=== PATIENT | male | born 1990 | race Caucasian/White ===

== ENCOUNTER 2020-11-16 18:30 | Emergency (ER) | payer OTHER ==
[~2020-11-16] VITALS: Ht 180.3 cm; Wt 80.4 kg
[2020-11-16 18:40] VITALS: BP 141/78
--- NOTE | 2020-11-16 19:05 | NUR ---
PT AMBULATED TO ROOM FROM TRIAGE. PT WORKS FOR [employer] [place] AT [employer] AND HAD NEEDLE STICK INJURY FROM PT KNOWN TO HAVE HEP C. PT SENT HERE FROM WORK FOR EVALUATION.
[2020-11-16 19:21] LABS: BASOPHILS % (AUTO) 1 % (0-1); EOSINOPHILS % (AUTO) 3 % (1-7); LYMPHOCYTES % (AUTO) 29 % (22-44); MEAN CORPUSCULAR HGB CONC 35.4 g/dL (33.2-36.2); MEAN PLATELET VOLUME 9.1 fL (7.4-10.4); MONOCYTES % (AUTO) 10 % (2-9); NEUTROPHILS % (AUTO) 57 % (42-75); PLATELET COUNT 225 x10^3/uL (130-400); RED BLOOD COUNT 4.94 x10^6/uL (4.38-5.82); RED CELL DISTRIBUTION WIDTH 13.1 % (9.4-14.8)
[2020-11-16 19:27] LABS: MD NO
[2020-11-16 19:30] LABS: ALANINE AMINOTRANSFERASE 43 U/L (12-78); ALBUMIN 4.4 g/dL (3.4-5.0); ANION GAP 6 mmol/L (5-15); CHLORIDE 106 mmol/L (98-107); CREATININE 0.88 mg/dL (0.7-1.3)
[2020-11-16 19:32] LABS: ALKALINE PHOSPHATASE 104 U/L (45-117); BILIRUBIN,TOTAL 0.6 mg/dL (0.2-1.0); TOTAL PROTEIN 7.4 g/dL (6.4-8.2)
[2020-11-16 19:35] LABS: MICROSCOPIC NOT IND
--- NOTE | 2020-11-16 19:58 | NUR ---
DISCHARGE INSTRUCTIONS REVIEWED WITH PT. ALL QUESTIONS ANSWERED AT THIS TIME.
== END 2020-11-16 20:01 | disposition home or self-care (01) ==
LOC: ED 20:00
DX: S61.452A Open bite of left hand, initial encounter (principal); B19.9 Unspecified viral hepatitis without hepatic coma; W46.1XXA Contact with contaminated hypodermic needle, initial encounter; Y93.89 Activity, other specified; Y92.89 Other specified places as the place of occurrence of the external cause; Y99.8 Other external cause status
CPT/HCPCS: 36415; 80053; 81003; 85025; 86803; 87340; 87806; 99283; G0475